=== PATIENT | male | born 1985 | race Caucasian/White ===

== ENCOUNTER 2016-09-20 22:24 | Emergency (ER) | payer OTHER ==
[2016-09-21] MEDS ORDERED: PENICILLIN V POTASSIUM 500 MG TABLET PO ONE
[2016-09-21] MEDS ORDERED: DEXAMETHASONE SOD PHOS INJ 10 MG/1 ML VIAL IM ONE
--- NOTE | 2016-09-21 00:03 | ER Document Report ---
HPI - HPI Patient complains to provider of: sore throat Pain Level: 3 Context: Patient is a 31-year-old male who comes emergency department with chief complaint of sore throat for the past 2 days, he reports painful swallowing, he reports some swelling in the front of his neck, he denies fever, headache, shortness of breath, abdominal pain. He denies any daily medications or medical problems. He denies any obvious sick exposures. - CARDIOVASCULAR Cardiovascular: DENIES: Chest pain - DERM Skin Color: Normal, [place] Past Medical History - General Information source: Patient - Social History Smoking Status: Never Smoker Chew tobacco use (# tins/day): No Frequency of alcohol use: None Drug Abuse: None Lives with: Alone Family History: Reviewed & Not Pertinent Patient has suicidal ideation: No Patient has homicidal ideation: No - Medical History Medical History: Negative Renal/ Medical History: Denies: Hx Peritoneal Dialysis Surgical Hx: Negative - Immunizations Immunizations up to date: Yes Hx Diphtheria, Pertussis, Tetanus Vaccination: Yes Vertical Provider Document - CONSTITUTIONAL General Appearance: WD/WN, No Apparent Distress - INFECTION CONTROL TRAVEL OUTSIDE OF THE [place] IN LAST 30 DAYS: No - HEENT HEENT: Atraumatic, Normocephalic, Pharyngeal Exudate - Bilateral, Pharyngeal Erythema. negative: Normal ENT Exam, Tympanic Membrane Red, Tympanic Membrane Bulging - NECK Neck: Lymphadenopathy-Left, Lymphadenopathy-Right - RESPIRATORY Respiratory: Breath Sounds Normal, No Respiratory Distress O2 Sat by Pulse Oximetry: 98 - CARDIOVASCULAR Cardiovascular: Regular Rate, Regular Rhythm - GI/ABDOMEN Gastrointestinal: Abdomen Soft, Abdomen Non-Tender Course - Re-evaluation Re-evalutation: Exudative pharyngitis with anterior cervical adenopathy, no cough, no fever. 3 or 4 criteria for strep. No evidence of peritonsillar abscess. Soft abdomen with no evidence of splenomegaly. No significant fatigue concerning for mono. Clinically patient appears to have strep throat. Unfortunately the test was already 1 4 saw patient, this is negative. I discussed this with patient. He will be given Decadron, after discussion patient will also be given penicillin for coverage. Discussed possibilities of both strep and mono. Discussed follow -up and return precautions. Patient states understanding and agreement. - Vital Signs Vital signs: Temp Pulse Resp BP Pulse Ox 98.3 F 83 18 119/85 98 09/20/16 22:46 09/20/16 22:46 09/20/16 22:46 09/20/16 22:46 09/20/16 22:46 Discharge - Discharge Clinical Impression: Exudative pharyngitis Condition: Stable Disposition: HOME, SELF-CARE Additional Instructions: Your examination fulfills the criteria for a strep throat infection. Take penicillin as prescribed to completion. Take ibuprofen or Tylenol for pain. It is still possible this is a viral source, if so symptoms will continue for several days longer. Follow-up with primary care. Return to emergency department for any concerning or worsening symptoms including difficulty swallowing secretions, increased swelling of the throat, or severe abdominal pain. Prescriptions: Penicillin V Potassium [Penicillin Vk 500 mg Tablet] 500 mg PO BID #20 tablet
[2016-09-21 00:21] VITALS: BP 115/88
== END 2016-09-21 00:21 | disposition home or self-care (01) ==
LOC: ER 22:24
DX: J02.9 Acute pharyngitis, unspecified (principal); R59.0 Localized enlarged lymph nodes
CPT/HCPCS: 99283; 96372; 87070; 87880; 87077; J1100